=== PATIENT | female | born 1990 | race African-American/Black ===

== ENCOUNTER 2016-12-20 04:21 | Emergency (ER) | payer OTHER ==
[2013-12-06 11:37] VITALS: BMI 40.5
[~2016-12-20 04:21] MED LIST: DICLEGIS; HYDROCODONE-APA1 TAB PO; IBUPROFEN600 MG PO; PHENERGAN25 MG; PRENATABS RX TA1 TAB PO; ZOFRAN4 MG PO
[2016-12-20 05:01] LABS: BASOPHILS 0.2 % (0-2); EOSINOPHILS 0.3 % (0-7); HEMATOCRIT 36.8 % (36.0-48.0); HEMOGLOBIN 11.7 g/dL (12-16); IMMATURE GRANULOCYTES 0.5 % (0-5); LYMPHOCYTES 32.6 % (15-50); MCHC 31.8 g/dL (31.0-37.0); MCV 81.8 fL (80.0-100.0); MEAN PLATELET VOLUME 9.1 fL (7.4-10.4); MONOCYTES 4.7 % (2-11); NEUTROPHILS 61.7 % (40-80); PLATELET COUNT 361 10x3/uL (130-400); WBC 10.1 10x3/uL (4.8-10.8)
[2016-12-20 05:06] LABS: APPEARANCE HAZY (CLEAR); BILIRUBIN NEGATIVE (NEGATIVE); COLOR YELLOW (YELLOW); GLUCOSE NEGATIVE (NEGATIVE); KETONE NEGATIVE (NEGATIVE); LEUKOCYTE ESTERASE TRACE (NEGATIVE); NITRITE NEGATIVE (NEGATIVE); PROTEIN TRACE mg/dL (NEGATIVE); UROBILINOGEN NORMAL (NORMAL)
[2016-12-20 05:07] LABS: EPITHELIAL CELLS 0-5 /hpf (0-5); WHITE CELLS - URINE 0-5 /hpf (0-5)
[2016-12-20 05:08] LABS: BACTERIA FEW /hpf (NONE SEEN); YEAST >1+ /hpf (NONE SEEN)
[2016-12-20 05:17] LABS: ALBUMIN 3.3 g/dL (3.4-5.0); ANION GAP 13.9 mmol/L (8-16); BILIRUBIN - TOTAL 0.3 mg/dL (0.2-1.3); CALCIUM 8.7 mg/dL (8.5-10.1); CARBON DIOXIDE 27.2 mmol/L (21.0-32.0); CREATININE - SERUM 1.1 mg/dL (0.6-1.3); POTASSIUM - SERUM 4.1 mmol/L (3.5-5.1); PROTEIN - SERUM 7.8 g/dL (6.4-8.2)
[2016-12-20 05:40] LABS: HCG URINE NEGATIVE (NEGATIVE)
== END 2016-12-20 06:37 | disposition home or self-care (01) ==
LOC: D.ER 04:21
PROVIDERS: Family Medicine
DX: N20.1 Calculus of ureter (principal); R30.0 Dysuria; F50.89 Other specified eating disorder

== ENCOUNTER 2017-03-31 17:37 | Emergency (ER) | payer OTHER ==
[2013-12-06 11:37] VITALS: BMI 40.5
== END 2017-03-31 18:32 | disposition home or self-care (01) ==
LOC: D.ER 17:37
DX: L02.411 Cutaneous abscess of right axilla (principal)

== ENCOUNTER 2018-08-21 10:35 | Day surgery (SDC) | payer OTHER ==
[2018-08-20 09:28] LABS: HEMATOCRIT 36.2 % (36.0-48.0); HEMOGLOBIN 11.6 g/dL (12-16); MCH 26.4 pg (26.0-34.0); MCV 82.5 fL (80.0-100.0); RBC 4.39 10x6/uL (4.00-5.40); RDW 15.1 % (11.5-14.5); WBC 7.4 10x3/uL (4.8-10.8)
[~2018-08-21] VITALS: Ht 147.3 cm; Wt 110.5 kg
[~2018-08-21 10:35] MED LIST changes: +VITAMIN D250000 UNIT PO
[2018-08-21 10:55] VITALS: BP 116/81; Ht 147.3 cm; Wt 110.5 kg
[2018-08-21] MEDS ORDERED: HYDROCODON-ACE1 EAC7 PO (13:52)
--- NOTE | 2018-08-21 17:58 | NUR ---
1745 IV REMOVED PRESSURE HELD AND DRESSING APPLIED. 1755 PT DISCHARGED HOME IN W/C INSTRUCTED TO SOUND MIXER RX THAT HAS E SCRIBED TO HER RX. MEDICATED PAIN AT 1650. PT VOIDED PRIOR TO GOING HOME.
== END 2018-08-21 16:50 | disposition home or self-care (01) ==
LOC: D.OPS 10:35 → D.PAN 13:00 → D.OPS 16:50
PROVIDERS: Anesthesiology; ATTEND Surgery
DX: K80.10 Calculus of gallbladder with chronic cholecystitis without obstruction (principal); E66.01 Morbid (severe) obesity due to excess calories; Z01.812 Encounter for preprocedural laboratory examination

== ENCOUNTER 2019-05-18 15:55 | Emergency (ER) | payer OTHER ==
[~2019-05-18] VITALS: Ht 147.3 cm; Wt 109.1 kg
[~2019-05-18 15:55] MED LIST changes: +HYDROCODON-ACE1 EAC7 PO
[2019-05-18 15:58] VITALS: Ht 147.3 cm; Wt 109.1 kg
[2019-05-18 16:28] LABS: BASOPHILS 0.3 % (0-2); EOSINOPHILS 0.7 % (0-7); HEMATOCRIT 35.4 % (36.0-48.0); HEMOGLOBIN 11.4 g/dL (12-16); LYMPHOCYTES 47.3 % (15-50); MCH 27.2 pg (26.0-34.0); MCHC 32.2 g/dL (31.0-37.0); MCV 84.5 fL (80.0-100.0); MEAN PLATELET VOLUME 8.9 fL (7.4-10.4); MONOCYTES 5.8 % (2-11); NEUTROPHILS 45.9 % (40-80); PLATELET COUNT 323 10x3/uL (130-400); RBC 4.19 10x6/uL (4.00-5.40); RDW 14.7 % (11.5-14.5); WBC 7.1 10x3/uL (4.8-10.8)
[2019-05-18 16:36] LABS: CALC OSMOLALITY 284 mosm/kg (275-300); CALCIUM 8.9 mg/dL (8.5-10.1); CARBON DIOXIDE 27.8 mmol/L (21.0-32.0); CHLORIDE - SERUM 107 mmol/L (98-107); CREATININE - SERUM 0.7 mg/dL (0.6-1.3); GLUCOSE 99 mg/dL (74-106); POTASSIUM - SERUM 3.5 mmol/L (3.5-5.1); SODIUM 144 mmol/L (136-145); UREA NITROGEN 8 mg/dL (7-18); eGFR NON AFRICAN AMERICAN > 90 mL/min (90-120)
[2019-05-18 16:45] LABS: ALBUMIN 3.1 g/dL (3.4-5.0); ALKALINE PHOSPHATASE 82 U/L (46-116); ALT (SGPT) 20 U/L (10-68); BILIRUBIN - TOTAL 0.41 mg/dL (0.2-1.3); PROTEIN - SERUM 7.5 g/dL (6.4-8.2)
[2019-05-18 16:46] LABS: TROPONIN-I < 0.017 ng/mL (0.000-0.060)
[2019-05-18] MEDS ORDERED: NAPROSYN500 MG PO (17:00)
[2019-05-18 17:20] VITALS: BP 119/81
== END 2019-05-18 17:21 | disposition home or self-care (01) ==
LOC: D.ER 15:55
PROVIDERS: Family Medicine
DX: S29.011A Strain of muscle and tendon of front wall of thorax, initial encounter (principal); E07.9 Disorder of thyroid, unspecified

== ENCOUNTER 2020-08-21 20:56 | Emergency (ER) | payer OTHER ==
[~2020-08-21] VITALS: Ht 147.3 cm; Wt 118.2 kg
[~2020-08-21 20:56] MED LIST changes: +NAPROSYN500 MG PO; +SMZ-TMP DS TABL1 TAB PO
[2020-08-21 21:06] VITALS: Ht 147.3 cm; Wt 118.2 kg
[2020-08-21 21:45] LABS: BASOPHILS 0.1 % (0-2); EOSINOPHILS 0.8 % (0-7); HEMATOCRIT 34.2 % (36.0-48.0); HEMOGLOBIN 10.6 g/dL (12-16); IMMATURE GRANULOCYTES 0.3 % (0-5); LYMPHOCYTE ABS# 3.39 10x3/uL (1.18-3.74); LYMPHOCYTES 44.1 % (15-50); MCH 26.4 pg (26.0-34.0); MCV 85.1 fL (80.0-100.0); MEAN PLATELET VOLUME 9.4 fL (7.4-10.4); MONOCYTES 5.3 % (2-11); NEUTROPHIL ABS# 3.79 10x3/uL (1.56-6.13); NEUTROPHILS 49.4 % (40-80); PLATELET COUNT 346 10x3/uL (130-400); RBC 4.02 10x6/uL (4.00-5.40); RDW 14.8 % (11.5-14.5); WBC 7.7 10x3/uL (4.8-10.8)
[2020-08-21 21:49] LABS: APTT 21.1 SECONDS (22.8-39.4); INR 1.01 (0.85-1.17); PROTIME 12.3 SECONDS (11.6-15.0)
[2020-08-21 21:50] LABS: CALC OSMOLALITY 288 mosm/kg (275-300); CALCIUM 8.9 mg/dL (8.5-10.1); CARBON DIOXIDE 28.5 mmol/L (21.0-32.0); CHLORIDE - SERUM 105 mmol/L (98-107); CREATININE - SERUM 0.8 mg/dL (0.6-1.3); POTASSIUM - SERUM 3.2 mmol/L (3.5-5.1); SODIUM 143 mmol/L (136-145); UREA NITROGEN 12 mg/dL (7-18); eGFR NON AFRICAN AMERICAN 90 mL/min (90-120)
[2020-08-21 21:53] LABS: GLUCOSE 166 mg/dL (74-106)
[2020-08-21 22:04] LABS: ALBUMIN 3.1 g/dL (3.4-5.0); ALKALINE PHOSPHATASE 83 U/L (30-120); ALT (SGPT) 20 U/L (10-68); BILIRUBIN - TOTAL 0.19 mg/dL (0.2-1.3); CKMB 0.8 U/L (0.0-3.6); CREATINE KINASE 145 UL (21-215); MAGNESIUM - SERUM 1.8 mg/dL (1.8-2.4); PROTEIN - SERUM 7.5 g/dL (6.4-8.2); TROPONIN-I < 0.017 ng/mL (0.000-0.060)
[2020-08-21] MEDS ORDERED: ALBUTEROL SULF8.5 GM INH (23:18)
[2020-08-21] MEDS ORDERED: MEDROL DOSE PACK4 MG PO (23:18)
[2020-08-22 00:04] VITALS: BP 131/81
== END 2020-08-22 00:05 | disposition home or self-care (01) ==
LOC: D.ER 20:56
PROVIDERS: Family Medicine
DX: R07.89 Other chest pain (principal)